=== PATIENT | male | born 1985 | race Caucasian/White ===

== ENCOUNTER → 2018-09-26 | Outpatient (CLI) | payer OTHER ==
[~2018-09-26] MED LIST: CONTRAST GIVEN. MC PRN; IOHEXOL 240 MG/ML 50ML VIAL. PO ONE; IOHEXOL 300 MG/ML 100ML VIAL. IV ONE
--- NOTE | 2018-09-26 12:43 | KCIC ---
EXAM: Abdomen and pelvis CT with intravenous contrast. HISTORY: Right lower quadrant pain. TECHNIQUE: Computed tomographic images of the abdomen and pelvis were obtained following the administration of 70 cc Isovue-370 intravenous contrast. Multiplanar reformatting was performed. *One or more of the following individualized dose reduction techniques were utilized for this examination: 1. Automated exposure control. 2. Adjustment of the mA and/or kV according to patient size. 3. Use of iterative reconstruction technique. COMPARISON: None. FINDINGS: Evaluation of the lower thorax demonstrates posterior dependent and basilar atelectasis. There are few tiny benign pleural based nodular opacities. No suspicious nodule is seen. No suspicious hepatic lesion is seen. The gallbladder, pancreas, and adrenal glands are unremarkable. There is a splenule inferior to an otherwise unremarkable spleen. The kidneys and urinary bladder are unremarkable. There is no appendicitis. There is no abnormal bowel wall thickening. There is no bowel obstruction. There is no lymphadenopathy. There is increased soft tissue density within the right inguinal region likely due to scar/granulation tissue status post inguinal hernia repair. There is degenerative change at the lumbosacral junction, with associated bilateral foraminal stenosis. IMPRESSION: No acute abdominal or pelvic finding. Electronically signed by: Soila Cline MD (09/26/2018 12:40 PM) [id number]
== END | disposition home or self-care (01) ==
LOC: KCIC CT 08:13
PROVIDERS: ATTEND Family Medicine
DX: R10.31 Right lower quadrant pain (principal); J98.11 Atelectasis; M47.817 Spondylosis without myelopathy or radiculopathy, lumbosacral region; M48.07 Spinal stenosis, lumbosacral region
CPT/HCPCS: 74177; Q9966; Q9967